=== PATIENT | female | born 1995 | race American Indian/Alaskan Native ===

== ENCOUNTER 2019-01-24 02:55 | Outpatient (CLI) | payer OTHER ==
[2019-01-24] MEDS ORDERED: LACTATED RINGERS 500 ML IV ONE (03:31)
[2019-01-24 04:37] VITALS: BP 111/62
[2019-01-24 05:08] LABS: Bilirubin,Urine NEG (Negative); Blood,Urine NEG (Negative); Color,Urine Straw (Yellow); Mucus,Urine FEW /HPF; Protein,Urine <15 mg/dL mg/dL (Negative); Urobilinogen,Urine < 2.0 mg/dL (<2.0)
== END 2019-01-24 05:41 | disposition home or self-care (01) ==
LOC: TRG 02:55
PROVIDERS: ATTEND Obstetrics & Gynecology
DX: O26.893 Other specified pregnancy related conditions, third trimester (principal); R25.2 Cramp and spasm; Z3A.35 35 weeks gestation of pregnancy
CPT/HCPCS: 59025; 81001

== ENCOUNTER 2019-02-11 03:19 | Inpatient (IN) | payer OTHER ==
[2019-02-11] MEDS ORDERED: LACTATED RINGERS 1,000 ML IV ONE (04:14)
[2019-02-11] MEDS ORDERED: TERBUTALINE 1 MG/1 ML INJ SUB-Q ONE (05:14)
--- NOTE | 2019-02-11 05:46 | Anesthesia Consultation ---
Anesthesia Consult and Med Hx Date of service: 02/11/19 - Airway Anesthetic Teeth Evaluation: Good ROM Head & Neck: Adequate Mental/Hyoid Distance: Adequate Mallampati Class: Class II Intubation Access Assessment: Probably Good - Pulmonary Exam CTA: Yes - Cardiac Exam Cardiac Exam: RRR - Pre-Operative Health Status ASA Pre-Surgery Classification: ASA2 Proposed Anesthetic Plan: Spinal - Pulmonary Hx Asthma: No - Cardiovascular System Hx Hypertension: No - Central Nervous System Hx Seizures: No Hx Psychiatric Problems: No - Endocrine Hx Renal Disease: No Hx Hypothyroidism: No Hx Hyperthyroidism: No - Hematic Hx Anemia: No Hx Sickle Cell Disease: No - Other Systems Hx Alcohol Use: No
--- NOTE | 2019-02-11 05:47 | Anesthesia Day of Surgery ---
Anesthesia Day of Surgery - Day of Surgery Patient Examined: Yes Patient H&P Reviewed: Yes Patient is NPO: Yes
[2019-02-11] MEDS ORDERED: METOCLOPRAMIDE 10 MG/2 ML INJ IV ONE ×2 (05:51→08:07)
[2019-02-11] MEDS ORDERED: BICITRA ORAL LIQD 30ML PO ONE ×2 (05:51→08:07)
[2019-02-11] MEDS ORDERED: FAMOTIDINE 20 MG/2 ML INJ IV ONE ×2 (05:54→08:07)
[2019-02-11] MEDS ORDERED: OXYTOCIN 20 UNIT/1000ML DRIP 20 UNITS/1,000 ML BAG IV SCH ×3 (06:00→09:00)
[2019-02-11] MEDS ORDERED: ceFAZolin/STERILE WATER 2 GM/20 ML SYRINGE IV NR (06:00)
[2019-02-11 06:46] LABS: Hematocrit 33.1 % (30.3-42.9); Mean Corpuscular HGB Conc 33 % (30-34); Mean Corpuscular Volume 87 fl (79-97); Platelet Count 222 K/mm3 (140-440); Red Blood Count 3.81 M/mm3 (3.65-5.03)
--- NOTE | 2019-02-11 06:49 | History and Physical Report ---
History of Present Illness Date of examination: 02/11/19 Date of admission: 02/11/19 Chief complaint: contractions History of present illness: This is a 24 yo at Past History Past Medical History: no pertinent history Past Surgical History: section Family/Genetic History: none Social history: single. denies: smoking, alcohol abuse, prescription drug abuse - Obstetrical History Expected Date of Delivery: 02/23/19 Actual Gestation: 38 Week(s) 2 Day(s) : 4 Para: 1 Hx # Term Pregnancies: 1 Number of Pregnancies: 0 Spontaneous Abortions: 2 Induced : 0 Number of Living Children: 1 Medications and Allergies Allergies Allergy/AdvReac Type Severity Reaction Status Date / Time No Known Allergies Allergy Verified 02/11/19 04:12 Active Meds: Active Medications Cefazolin Sodium (Ancef/Sterile Water 2 Gm/20 Ml) 2 gm IV PREOP NR Stop: 02/11/19 23:45 Oxytocin/Sodium Chloride (Pitocin/Ns 20 Unit/1000ml Drip) 20 units in 1,000 mls @ 0 mls/hr IV DIRECT KHADAR Review of Systems All systems: negative - Vital Signs Vital signs: Vital Signs Temp 98.3 F 02/11/19 06:14 Temp Pulse Resp BP Pulse Ox 98.3 F 02/11/19 06:14 - Physical Exam Breasts: Positive: normal Cardiovascular: Regular rate, Normal S1 Lungs: Positive: Clear to auscultation, Normal air movement Abdomen: Positive: normal appearance, soft, normal bowel sounds. Negative: distention, tenderness, guarding Genitourinary (Female): Positive: normal external genitalia, normal perenium Vagina: Positive: normal moisture Uterus: Positive: normal size, normal contour Anus/Rectum: Positive: normal perianal skin Extremities: Positive: normal Deep Tendon Reflex Grade: Normal +2 - Obstetrical FHR: category 1 Cervical Dilatation: 3 Cervical Effacement Percentage: 60 station: -3 Uterine Contraction Pattern: Irregular Uterine Tone Measurement Phase: Contraction Uterine Contraction Intensity: Mild Results Result Diagrams: 02/11/19 04:30 Abnormal lab results 02/11/19 Range/Units 04:30 RDW 16.0 H (13.2-15.2) % All other labs normal. Assessment and Plan A/P IUP 38 weeks walkin patient No records available hx of previous csec declines active labor proceed with repeat csec r/b/a of preocedure reviewed which include bleeding infection damage to pelvic and non pelvic organs, blood clots, anesthesia, hysterectomy and
[2019-02-11] MEDS ORDERED: PROMETHAZINE 25 MG RECT SUPP PR PRN (06:58)
[2019-02-11] MEDS ORDERED: HYDROmorphone 1 MG/1 ML INJ IV PRN (06:58)
[2019-02-11] MEDS ORDERED: NALOXONE 0.4 MG/1 ML INJ IV PRN ×2 (06:58→08:08)
[2019-02-11] MEDS ORDERED: PROMETHAZINE 25 MG TAB PO PRN (06:58)
[2019-02-11] MEDS ORDERED: ONDANSETRON 4 MG/2 ML INJ IV PRN ×2 (06:58→08:08)
[2019-02-11] MEDS ORDERED: fentaNYL-BUPIV 2 MCG/ML-0.125% 200 MCG/100 ML BAG EPIDURAL SCH (07:00)
[2019-02-11] MEDS ORDERED: PHENYLEPHRINE/NS 1,000 MCG/10 ML SYRINGE (OR USE) IV ONE ×2 (07:26→07:57)
[2019-02-11] MEDS ORDERED: ONDANSETRON 4 MG/2 ML INJ ONE (07:26)
[2019-02-11] MEDS ORDERED: DEXMEDETOMIDINE 200 MCG/2 ML VIAL IV ONE (07:26)
[2019-02-11] MEDS ORDERED: KETOROLAC 30 MG/1 ML INJ ONE (07:46)
[2019-02-11] MEDS ORDERED: LANOLIN/ZINC/DIMETHICONE (LANSINOH) 7 GM TP PRN (08:08)
[2019-02-11] MEDS ORDERED: MAGNESIUM HYDROXIDE (MOM) ORAL LIQD UDC PO PRN (08:08)
[2019-02-11] MEDS ORDERED: KETOROLAC 30 MG/1 ML INJ IV PRN (08:08)
[2019-02-11] MEDS ORDERED: IBUPROFEN 800 MG TAB PO PRN (08:08)
[2019-02-11] MEDS ORDERED: MORPHINE 4 MG/1 ML INJ IV PRN (08:08)
[2019-02-11] MEDS ORDERED: HYDROcodone/ACETAMINOPHEN 5-325 MG TAB PO PRN (08:08)
[2019-02-11] MEDS ORDERED: MORPHINE 2 MG/1 ML INJ IV PRN (08:08)
[2019-02-11] MEDS ORDERED: oxyCODONE /ACETAMINOPHEN 5-325MG TAB PO PRN (08:08)
[2019-02-11] MEDS ORDERED: WITCH HAZEL/ GLYCERIN PAD TP PRN (08:08)
[2019-02-11] MEDS ORDERED: SENNOSIDES 8.6 MG TAB PO PRN (08:08)
[2019-02-11] MEDS ORDERED: ACETAMINOPHEN 325 MG TAB PO PRN (08:08)
--- NOTE | 2019-02-11 08:20 | Post Anesthesia Evaluation ---
- Post Anesthesia Evaluation Patient Participated: Yes Nausea/Vomiting: No Temp > 96.8F: Yes Pain Manageable: Yes Adequeate Hydration: Yes Anesthesia Complications: No Block Receding Appropriately: Yes Patient on Ventilator: No
--- NOTE | 2019-02-11 08:23 | Operative Report ---
Operative Report Operative Report: DATE OF OPERATION: 02/11/19 PREOPERATIVE DIAGNOSES: 1. Prior section. 2. Declines vaginal after . 3. A 38 weeks gestation. POSTOPERATIVE DIAGNOSES: 1. Prior section. 2. Declines vaginal after . 3. A 38 weeks gestation. OPERATION PERFORMED: Repeat low transverse . SURGEON: Teena Silva MD CAR SHIFTER: Teena Silva MD ANESTHESIA: Spinal. ESTIMATED BLOOD LOSS: 900 mL. FINDINGS: A viable male weighing 3521 grams with Apgars of 8 and 9 . COMPLICATIONS: None. DISPOSITION: Stable. DESCRIPTION OF OPERATION: After informed consent was obtained, the patient was b rought back to the operative suite where adequate spinal anesthesia was obtained. The patient was then placed in the dorsal supine position and prepped and draped in the sterile fashion. A repeat Pfannenstiel skin incision was made with a blade and carried down through the subcutaneous tissues to the fascia, which was extended in the transverse fascia with Lundberg scissors. The fascial incision was then dissected off the rectus muscles both bluntly and sharply. The rectus muscle was in the midline. The peritoneum was entered bluntly. The peritoneal incision was then extended both superiorly and inferiorly with good visualization of the underlying bowel and bladder. The bladder blade was placed, and the vesicouterine fascia was incised to create a bladder flap in a low transverse position. This was developed digitally. A low transverse uterine incision was made with the blade and carried down through the layers of the uterus until membranes bulged through the incision. The uterine incision was then extended digitally. Hand was placed inside the pelvis, and the head was brought up out of the pelvis and delivered atraumatically with gentle fundal pressure. Prior to the head being delivered, actually through the skin, the sound of the baby starting to cry was noted. After the head was delivered, the mouth and nares were aggressively bulb suctioned. Remainder of the was delivered, and the infant was passed to the awaiting nursing staff for additional care. Cord was doubly clamped and cut and cord blood was obtained. The placenta was then manually extracted, and the uterus was exteriorized. The uterus was cleaned of remaining clot. The uterine incision was readily identified and closed in two layers, first one with running locking followed by second imbricating layer of 0 Vicryl. The vesicouterine fascia was then reapproximated with 2-0 Vicryl. The adnexa were within normal limits. The uterus was placed back inside the pelvis. Copious irrigation and inspection of the incision was satisfactory. The peritoneum was then closed with 2-0 Vicryl in a running fashion. The fascia was closed with 1 Vicryl from one angle to the next. Subcutaneous tissues were copiously irrigated, and final bleeders were cauterized. The incision was then reapproximated with feliciano needle in a standard fashion.
[2019-02-11] MEDS ORDERED: LACTATED RINGERS 1,000 ML IV SCH (09:00)
[2019-02-11] MEDS ORDERED: HYDROmorphone 1 MG/1 ML INJ ONE (12:44)
[2019-02-11] MEDS: HYDROmorphone 1 MG/1 ML INJ IV PRN ×2 (12:45→16:48)
[2019-02-11] MEDS ORDERED: D5W/LACTATED RINGERS 1,000 ML IV ONE (12:49)
[2019-02-11 15:43] LABS: Basophils % (Auto) 0.3 % (0.0-1.8); Eosinophils % (Auto) 0.1 % (0.0-4.3); Hematocrit 29.8 % (30.3-42.9); Hemoglobin 9.9 gm/dl (10.1-14.3); Lymphocytes # (Auto) 1.2 K/mm3 (1.2-5.4); Lymphocytes % (Auto) 13.4 % (13.4-35.0); Mean Corpuscular HGB Conc 33 % (30-34); Mean Corpuscular Volume 87 fl (79-97); Monocytes # (Auto) 0.8 K/mm3 (0.0-0.8); Monocytes % (Auto) 9.1 % (0.0-7.3); Platelet Count 194 K/mm3 (140-440); Red Blood Count 3.43 M/mm3 (3.65-5.03)
[2019-02-11] MEDS ORDERED: D5W/LACTATED RINGERS 1,000 ML IV SCH (21:00)
[2019-02-11 23:35] LABS: Hematocrit 30.7 % (30.3-42.9); Hemoglobin 10.2 gm/dl (10.1-14.3)
[2019-02-12] MEDS: KETOROLAC 30 MG/1 ML INJ IV PRN ×4 (01:34→22:52)
--- NOTE | 2019-02-12 07:39 | Progress Note ---
Assessment and Plan A: POD#1 s/p repeat section, Asymptomatic anemia P: Begin bowel regimen. Hold diet at clears. Encourage ambulation. Routine postop care. Subjective - Subjective Date of service: 02/12/19 Principal diagnosis: s/p repeat section Interval history: Pt reports irritation from pressure dressing which was loosened overnight, but pt still reports discomfort. Minimal flatus Patient reports: appetite normal, voiding normally, pain well controlled, flatus (minimal ), ambulating normally, no bowel movement [place]: doing well Objective - Vital Signs Latest vital signs: Vital Signs Temp Pulse Resp BP 02/12/19 04:30 98.6 F 74 18 119/72 02/12/19 00:00 98 F 78 18 114/79 02/11/19 16:21 98.1 F 86 18 98/59 02/11/19 09:30 88 18 104/57 02/11/19 09:00 98 F 96 H 22 104/60 02/11/19 08:45 92 H 20 103/59 02/11/19 08:30 86 20 104/57 02/11/19 08:15 91 H 20 98/54 02/11/19 08:05 97.8 F 82 20 102/56 Intake and Output 02/11/19 02/12/19 02/12/19 22:59 06:59 14:59 Intake Total 500 Output Total 1400 1200 Balance -1400 -700 Intake: Oral 200 Intake, Free Water 300 Output: Urine 1400 1200 Indwelling Catheter 600 Void 800 1200 Other: Total, Intake Amount 200 Total, Output Amount 800 600 # Voids Void 1 1 - Exam Breasts: Present: deferred Cardiovascular: Present: Regular rate Lungs: Present: Clear to auscultation Abdomen: Present: soft, distention (moderate ), abnormal bowel sounds (hypoactive ) Uterus: Present: fundal height at umbilicus Extremities: Present: edema (trace ) Incision: Present: dressed - Labs Labs: Abnormal lab results 02/11/19 Range/Units 15:24 RBC 3.43 L (3.65-5.03) M/mm3 Hgb 9.9 L (10.1-14.3) gm/dl Hct 29.8 L (30.3-42.9) % RDW 16.0 H (13.2-15.2) % Phillips % (Auto) 9.1 H (0.0-7.3) % Seg Neutrophils % 77.1 H (40.0-70.0) %
[2019-02-12] MEDS ORDERED: MEASLES, MUMPS & RUBELLA 12,500 UNIT/0.5 ML VACCINE SUB-Q ONE (08:09)
[2019-02-12] MEDS ORDERED: TETANUS,DIPH,PERTUSS(ACELL) VACCINE 0.5 ML SYRINGE IM ONE (08:09)
[2019-02-12] MEDS ORDERED: oxyCODONE /ACETAMINOPHEN 5-325MG TAB PO PRN (08:30)
[2019-02-12] MEDS: FERROUS SULFATE 325 MG TAB PO SCH (10:15)
[2019-02-12] MEDS: MAGNESIUM HYDROXIDE (MOM) ORAL LIQD UDC PO SCH ×3 (10:15→21:42)
[2019-02-12] MEDS: PRENATAL VIT27-FE FUMARATE-FOLIC ACID VIT TAB PO SCH (10:16)
[2019-02-12] MEDS: SIMETHICONE 80 MG CHEW TAB PO PRN ×2 (13:56→21:42)
[2019-02-13] MEDS: MAGNESIUM HYDROXIDE (MOM) ORAL LIQD UDC PO SCH (05:45)
--- NOTE | 2019-02-13 07:44 | Progress Note ---
Assessment and Plan POD2 s/p repeat LTCS Vital signs stable Mild, asymptomatic anemia Routine pp care Anticipate d/c to home tomorrow Subjective - Subjective Date of service: 02/13/19 Principal diagnosis: s/p repeat section Interval history: POD2 s/p repeat LTCS Patient reports: appetite normal, voiding normally, pain well controlled, flatus, ambulating normally [place]: doing well, nursing well (both), bottle feeding Objective - Vital Signs Latest vital signs: Vital Signs Temp Pulse Resp BP BP Pulse Ox 02/12/19 23:53 97.9 F 83 20 94/44 99 02/12/19 16:36 98.3 F 84 18 107/65 02/12/19 15:49 98.4 F 86 20 96/64 100 02/12/19 08:33 99.1 F 95 H 20 103/63 100 Intake and Output 02/12/19 02/12/19 02/13/19 15:59 23:59 07:59 Intake Total 600 1080 120 Balance 600 1080 120 Intake: Oral 600 1080 120 Other: Total, Intake Amount 360 240 120 # Voids Void 1 1 1 # Bowel Movements 2 1 - Exam Lungs: Present: Normal air movement Abdomen: Present: soft Uterus: Present: firm, fundal height below umbilicus Extremities: Present: normal Incision: Present: normal, suppurative (mildly), intact
[2019-02-13] MEDS: PRENATAL VIT27-FE FUMARATE-FOLIC ACID VIT TAB PO SCH (09:50)
[2019-02-13] MEDS: FERROUS SULFATE 325 MG TAB PO SCH (09:51)
--- NOTE | 2019-02-14 08:37 | Progress Note ---
Assessment and Plan POD3 s/p repeat LTCS Vital signs stable Mild, asymptomatic anemia Routine pp care Discharge to home today Subjective - Subjective Date of service: 02/14/19 Principal diagnosis: s/p repeat section Interval history: POD3 s/p repeat LTCS Patient reports: appetite normal, voiding normally, pain well controlled, flatus, ambulating normally [place]: doing well, nursing well Objective - Vital Signs Latest vital signs: Vital Signs Temp Pulse Resp BP BP Pulse Ox 02/14/19 01:20 97.9 F 60 20 95/53 98 02/13/19 17:55 98.2 F 76 20 102/57 02/13/19 09:12 98.9 F 103 H 18 99/36 99 Intake and Output 02/13/19 02/14/19 02/14/19 23:59 07:59 15:59 Intake Total 360 360 Balance 360 360 Intake: Oral 360 360 Other: Total, Intake Amount 240 120 # Voids Void 1 1 - Exam Lungs: Present: Normal air movement Abdomen: Present: soft Uterus: Present: firm, fundal height at umbilicus. Absent: bogginess, tenderness Extremities: Present: normal Incision: Present: normal, dry, intact
--- NOTE | 2019-02-14 08:39 | Discharge Summary ---
Providers - Providers Date of Admission: 02/11/19 04:16 Date of discharge: 02/14/19 Attending physician: WILLIAM VARGAS MD Primary care physician: [facility] [facility] Hospitalization Reason for admission: active labor Delivery: Procedure: repeat low transverse Episiotomy: none Laceration: none Incision: normal, dry, intact Other procedures: none complications: none Discharge diagnosis: IUP at term delivered Hospital course: Pt arrived in labor and progressed to repeat d/c. Hospital course uneventful. Condition at discharge: Good Disposition: DC-01 TO HOME OR SELFCARE Plan - Provider Discharge Summary Activity: routine, no sex for 6 weeks, no heavy lifting 4 weeks, no strenuous exercise Diet: routine Instructions: routine Additional instructions: [] Smoking cessation referral if applicable(refer to patient education folder for contact #) [] Refer to [facility] Booklet Call your doctor immediately for: * Fever > 100.5 * Heavy vaginal bleeding ( >1 pad per hour) * Severe persistent headache * Shortness of breath * Reddened, hot, painful area to leg or breast * Drainage or odor from incision. * Keep incision clean and dry at all times and follow doctor's instructions regarding bathing/showering - Follow up plan Follow up: KIMBERLEE SIEGEL CNM [Advanced Practice Nurse] - 14 Days (Please call [facility] to schedule appointment.) Forms: [facility] Discharge Summary
[2019-02-14] MEDS: PRENATAL VIT27-FE FUMARATE-FOLIC ACID VIT TAB PO SCH (09:39)
[2019-02-14] MEDS: FERROUS SULFATE 325 MG TAB PO SCH (09:39)
[2019-02-14 17:17] VITALS: BP 112/71
== END 2019-02-14 18:15 | disposition home or self-care (01) | DRG 788 ==
LOC: TRG 03:19 → APU 04:16 → OBSVTOIN 04:16 → TRG 06:44 → OB 13:48
PROVIDERS: ADMIT Obstetrics & Gynecology; ATTEND Obstetrics & Gynecology
PROC: 10D00Z1 Extraction of Products of Conception, Low, Open Approach (ICD-10-PCS; principal; 2019-02-11)
PROC: 3E0234Z Introduction of Serum, Toxoid and Vaccine into Muscle, Percutaneous Approach (ICD-10-PCS; 2019-02-12)
PROC: 3E0234Z Introduction of Serum, Toxoid and Vaccine into Muscle, Percutaneous Approach (ICD-10-PCS; 2019-02-12)
PROC: 3E0334Z Introduction of Serum, Toxoid and Vaccine into Peripheral Vein, Percutaneous Approach (ICD-10-PCS; 2019-02-12)
DX: O34.211 Maternal care for low transverse scar from previous cesarean delivery (principal); Z3A.38 38 weeks gestation of pregnancy; Z37.0 Single live birth; Z23 Encounter for immunization
CPT/HCPCS: 36415; 85014; 85018; 85025; 85027; 85461; 86592; 86850; 86870; 86900; 86901; 96360; 96361; 96365; 96366; G0378; J0690; J1170; J1885; J2270; J2370; J2405; J2590; J2765; J2790; J3105; J3490; J7120; J7121